=== PATIENT | female | born 1945 | race Caucasian/White ===

== ENCOUNTER → 2019-04-17 13:45 | Outpatient (REF) | payer MEDICARE, OTHER, SELFPAY ==
[2019-04-17 14:48] LABS: Absolute Lymphocyte Count 1.81 X10^3/uL (0.83-4.51); Absolute Neutrophil Count 5.1 X10^3/uL (2.0-7.7); Basophil# 0.04 X10^3/uL; Basophil% 0.5 % (0-1); Eosinophil# 0.46 X10^3/uL; Eosinophils% 5.9 % (0-5); Hematocrit 41.6 % (37-47); Hemoglobin 13.3 g/dL (12.0-15.0); Lymphocyte # 1.81 X10^3/ul (4.0); Lymphocyte % 23.1 % (19-41); Mean Corpuscular Hgb 29.5 pg (27.0-32.0); Mean Corpuscular Volume 92.2 fL (81-99); Mean Platelet Vol. 10.1 fl (6.2-12.0); Monocyte# 0.41 X10^3/uL; Monocyte% 5.2 % (0-10); NRBC Flagged by Analyzer 0 % (0-5); Neutrophil # 5.07 X10^3/uL (2.7-7.7); Neutrophil % 64.9 % (47-70); Platelet Count 383 K/mm3 (150-450); RBC Distribution Width CV 12.7 % (11.6-14.6); RBC Distribution Width SD 43.1 fl (35.1-43.9); Red Blood Count 4.51 M/mm3 (4.2-5.4); White Blood Count 7.8 K/mm3 (4.4-11.0)
[2019-04-17 15:01] LABS: T3 Total - Triiodothyronine 1.11 ng/mL (0.6-1.81)
[2019-04-17 15:02] LABS: Anion Gap 4 (5-15); BUN 18 mg/dL (7-18); BUN/Creat Ratio 42.9 RATIO (10-20); Chloride 109 mmol/L (98-107); Creatinine, Serum 0.42 mg/dL (0.55-1.02); EST Glomerular Filtration Rate 158 mL/min (>60); Est Glom Filt Rate - Afr Amer 191 mL/min (>60); Glucose 140 mg/dL (74-106); Magnesium 2.3 mg/dL (1.6-2.6); Potassium 3.9 mmol/L (3.5-5.1); Sodium Level 142 mmol/L (136-145); T4 Total, Thyroxin 9.7 ug/dL (4.8-13.9); Thyroid Stim Hormone (TSH) 0.47 uIU/mL (0.358-3.74)
== END ==
LOC: OLS.ACH 13:45
PROVIDERS: Visit Provider Family Medicine
DX: R00.0 Tachycardia, unspecified (principal)
CPT/HCPCS: 36415; 80048; 83735; 84436; 84443; 84480; 85025

== ENCOUNTER → 2020-03-19 07:20 | Outpatient (REF) | payer MEDICARE, OTHER, SELFPAY ==
[2020-03-19 08:37] LABS: Hematocrit 40.7 % (37-47); Hemoglobin 12.4 g/dL (12.0-15.0); Mean Corp Hgb Conc 30.5 g/dL (32-36); Mean Corpuscular Volume 95.3 fL (81-99); Mean Platelet Vol. 10.2 fl (6.2-12.0); Platelet Count 321 K/mm3 (150-450); RBC Distribution Width CV 13.5 % (11.6-14.6); RBC Distribution Width SD 47.4 fl (35.1-43.9); Red Blood Count 4.27 M/mm3 (4.2-5.4); White Blood Count 5.6 K/mm3 (4.4-11.0)
[2020-03-19 09:02] LABS: AST(SGOT) 16 U/L (15-37); Alanine Aminotransfer ALT/SGPT 27 U/L (13-56); Albumin, Serum 3.3 g/dL (3.2-5.0); Alkaline Phosphatase 82 U/L (45-117); Anion Gap 4 (5-15); BUN 17 mg/dL (7-18); Chloride 104 mmol/L (98-107); EST Glomerular Filtration Rate 234 mL/min (>60); Est Glom Filt Rate - Afr Amer 283 mL/min (>60); Globulin 3.2 g/dL (2.2-4.2); Glucose 89 mg/dL (74-106); Potassium 3.8 mmol/L (3.5-5.1); Protein, Total 6.5 g/dL (6.4-8.2); Sodium Level 138 mmol/L (136-145); Thyroid Stim Hormone (TSH) 0.88 uIU/mL (0.358-3.74)
== END ==
LOC: OLS.ACH 07:20
PROVIDERS: Referring Provider Family Medicine; Visit Provider Family Medicine
DX: G35 Multiple sclerosis (principal); E04.9 Nontoxic goiter, unspecified
CPT/HCPCS: 36415; 80053; 84443; 85027

== ENCOUNTER → 2020-04-30 | Outpatient (REF) | payer MEDICARE, OTHER, SELFPAY | END | disposition home or self-care (01) | LOC: LABSPEC 05:00 | PROVIDERS: Referring Provider Family Medicine; Visit Provider Family Medicine | DX: Z11.59 Encounter for screening for other viral diseases (principal) | CPT/HCPCS: 87635; U0003 ==

== ENCOUNTER → 2020-05-07 05:00 | Outpatient (REF) | payer MEDICARE, OTHER, SELFPAY | LOC: OLS.ACH 05:00 | PROVIDERS: Referring Provider Family Medicine; Visit Provider Family Medicine | DX: Z11.59 Encounter for screening for other viral diseases (principal) | CPT/HCPCS: 87635; U0003 ==

== ENCOUNTER → 2020-05-12 10:00 | Outpatient (REF) | payer MEDICARE, OTHER, SELFPAY | LOC: OLS.ACH 10:00 | PROVIDERS: Visit Provider Family Medicine | DX: Z11.59 Encounter for screening for other viral diseases (principal) | CPT/HCPCS: 87635; U0003 ==

== ENCOUNTER → 2020-05-16 14:33 | Outpatient (REF) | payer MEDICARE, OTHER, SELFPAY | LOC: OLS.ACH 14:33 | PROVIDERS: Referring Provider Family Medicine; Visit Provider Family Medicine | DX: Z03.818 Encounter for observation for suspected exposure to other biological agents ruled out (principal) | CPT/HCPCS: 87635; U0003 ==

== ENCOUNTER → 2020-05-19 08:00 | Outpatient (REF) | payer MEDICARE, OTHER, SELFPAY | LOC: OLS.ACH 08:00 | PROVIDERS: Referring Provider Family Medicine; Visit Provider Family Medicine | DX: Z03.818 Encounter for observation for suspected exposure to other biological agents ruled out (principal) | CPT/HCPCS: 87635; U0003 ==

== ENCOUNTER → 2020-05-23 12:42 | Outpatient (REF) | payer MEDICARE, OTHER, SELFPAY | LOC: OLS.ACH 12:42 | PROVIDERS: Referring Provider Family Medicine; Visit Provider Family Medicine | DX: Z03.818 Encounter for observation for suspected exposure to other biological agents ruled out (principal) | CPT/HCPCS: 87635; U0003 ==

== ENCOUNTER → 2020-05-26 15:52 | Outpatient (REF) | payer MEDICARE, OTHER, SELFPAY | LOC: OLS.ACH 15:52 | PROVIDERS: Visit Provider Family Medicine | DX: Z03.818 Encounter for observation for suspected exposure to other biological agents ruled out (principal) | CPT/HCPCS: 87635; U0003 ==

== ENCOUNTER → 2020-05-30 09:28 | Outpatient (REF) | payer MEDICARE, OTHER, SELFPAY | LOC: OLS.ACH 09:28 | PROVIDERS: Referring Provider Family Medicine; Visit Provider Family Medicine | DX: Z03.818 Encounter for observation for suspected exposure to other biological agents ruled out (principal) | CPT/HCPCS: 87635; U0003 ==

== ENCOUNTER → 2020-06-03 09:24 | Outpatient (REF) | payer MEDICARE, OTHER, SELFPAY | LOC: OLS.ACH 09:24 | PROVIDERS: Referring Provider Family Medicine; Visit Provider Family Medicine | DX: Z03.818 Encounter for observation for suspected exposure to other biological agents ruled out (principal) | CPT/HCPCS: 87635; U0003 ==

== ENCOUNTER → 2020-06-06 11:00 | Outpatient (REF) | payer MEDICARE, OTHER, SELFPAY | LOC: OLS.ACH 11:00 | PROVIDERS: Visit Provider Family Medicine | DX: Z03.818 Encounter for observation for suspected exposure to other biological agents ruled out (principal) | CPT/HCPCS: 87635; U0003 ==

== ENCOUNTER → 2020-06-10 09:04 | Outpatient (REF) | payer MEDICARE, OTHER, SELFPAY | LOC: OLS.ACH 09:04 | PROVIDERS: Visit Provider Family Medicine | DX: Z03.818 Encounter for observation for suspected exposure to other biological agents ruled out (principal) | CPT/HCPCS: 87635; U0003 ==

== ENCOUNTER → 2020-06-17 07:52 | Outpatient (REF) | payer MEDICARE, OTHER, SELFPAY | LOC: OLS.ACH 07:52 | PROVIDERS: Referring Provider Family Medicine; Visit Provider Family Medicine | DX: Z03.818 Encounter for observation for suspected exposure to other biological agents ruled out (principal) | CPT/HCPCS: 87635; U0003 ==

== ENCOUNTER → 2020-06-24 12:50 | Outpatient (REF) | payer MEDICARE, OTHER, SELFPAY | LOC: OLS.ACH 12:50 | PROVIDERS: Visit Provider Family Medicine | DX: Z03.818 Encounter for observation for suspected exposure to other biological agents ruled out (principal) | CPT/HCPCS: 87635; U0003 ==

== ENCOUNTER → 2020-07-01 12:07 | Outpatient (REF) | payer MEDICARE, OTHER, SELFPAY | LOC: OLS.ACH 12:07 | PROVIDERS: PCP Family Medicine; Referring Provider Family Medicine; Visit Provider Family Medicine | DX: Z03.818 Encounter for observation for suspected exposure to other biological agents ruled out (principal) | CPT/HCPCS: 87635; U0003 ==

== ENCOUNTER → 2020-07-15 10:22 | Outpatient (REF) | payer MEDICARE, OTHER, SELFPAY | LOC: OLS.ACH 10:22 | PROVIDERS: PCP Family Medicine; Referring Provider Family Medicine; Visit Provider Family Medicine | DX: Z03.818 Encounter for observation for suspected exposure to other biological agents ruled out (principal) | CPT/HCPCS: 87635; U0003 ==

== ENCOUNTER → 2020-07-29 08:17 | Outpatient (REF) | payer MEDICARE, OTHER, SELFPAY | LOC: OLS.ACH 08:17 | PROVIDERS: PCP Family Medicine; Referring Provider Family Medicine; Visit Provider Family Medicine | DX: Z03.818 Encounter for observation for suspected exposure to other biological agents ruled out (principal) | CPT/HCPCS: 87635; U0003 ==

== ENCOUNTER → 2020-08-12 09:19 | Outpatient (REF) | payer MEDICARE, OTHER, SELFPAY | LOC: OLS.ACH 09:19 | PROVIDERS: PCP Family Medicine; Referring Provider Family Medicine; Visit Provider Family Medicine | DX: Z03.818 Encounter for observation for suspected exposure to other biological agents ruled out (principal) | CPT/HCPCS: 87635; U0003 ==

== ENCOUNTER → 2020-08-26 17:09 | Outpatient (REF) | payer MEDICARE, OTHER, SELFPAY | LOC: OLS.ACH 17:09 | PROVIDERS: PCP Family Medicine; Referring Provider Family Medicine; Visit Provider Family Medicine | DX: Z03.818 Encounter for observation for suspected exposure to other biological agents ruled out (principal) | CPT/HCPCS: 87635; U0005; U0003 ==

== ENCOUNTER → 2020-09-09 10:05 | Outpatient (REF) | payer MEDICARE, OTHER, SELFPAY | LOC: OLS.ACH 10:05 | PROVIDERS: PCP Family Medicine; Referring Provider Family Medicine; Visit Provider Family Medicine | DX: Z03.818 Encounter for observation for suspected exposure to other biological agents ruled out (principal) | CPT/HCPCS: 87635; U0003 ==

== ENCOUNTER → 2020-10-07 12:28 | Outpatient (REF) | payer MEDICARE, OTHER, SELFPAY | LOC: OLS.ACH 12:28 | PROVIDERS: PCP Family Medicine; Referring Provider Family Medicine; Visit Provider Family Medicine | DX: Z03.818 Encounter for observation for suspected exposure to other biological agents ruled out (principal) | CPT/HCPCS: 87635; U0005; U0003 ==

== ENCOUNTER → 2020-10-21 10:00 | Outpatient (REF) | payer MEDICARE, OTHER, SELFPAY | LOC: OLS.ACH 10:00 | PROVIDERS: PCP Family Medicine; Visit Provider Family Medicine | DX: Z03.818 Encounter for observation for suspected exposure to other biological agents ruled out (principal) | CPT/HCPCS: 87635; U0005; U0003 ==

== ENCOUNTER → 2020-12-17 05:00 | Outpatient (REF) | payer MEDICARE, OTHER, SELFPAY ==
[2020-12-17 08:35] LABS: Absolute Lymphocyte Count 2.86 X10^3/uL (0.83-4.51); Absolute Neutrophil Count 2.8 X10^3/uL (2.0-7.7); Basophil# 0.04 X10^3/uL; Basophil% 0.6 % (0-1); Eosinophil# 0.22 X10^3/uL; Eosinophils% 3.4 % (0-5); Hematocrit 38.4 % (37-47); Hemoglobin 12.1 g/dL (12.0-15.0); Lymphocyte # 2.86 X10^3/ul (0.83-4.51); Lymphocyte % 44.3 % (19-41); Mean Corp Hgb Conc 31.5 g/dL (32-36); Mean Corpuscular Hgb 30.3 pg (27.0-32.0); Mean Platelet Vol. 10.7 fl (6.2-12.0); Monocyte# 0.53 X10^3/uL; Monocyte% 8.2 % (0-10); NRBC Flagged by Analyzer 0 % (0-5); Neutrophil % 43.3 % (47-70); Platelet Count 345 K/mm3 (150-450); RBC Distribution Width CV 12.5 % (11.6-14.6); RBC Distribution Width SD 44.5 fl (35.1-43.9); White Blood Count 6.5 K/mm3 (4.4-11.0)
[2020-12-17 09:11] LABS: ALB/GLOB Ratio 1.1 RATIO (0.9-2.4); AST(SGOT) 12 U/L (15-37); Alanine Aminotransfer ALT/SGPT 21 U/L (13-56); Albumin, Serum 3.3 g/dL (3.2-5.0); Alkaline Phosphatase 90 U/L (45-117); Anion Gap 6 (5-15); BUN 24 mg/dL (7-18); BUN/Creat Ratio 73.2 RATIO (10-20); Calcium,Total 9.1 mg/dL (8.5-10.1); Chloride 107 mmol/L (98-107); Creatinine, Serum 0.33 mg/dL (0.55-1.02); EST Glomerular Filtration Rate 209 mL/min (>60); Est Glom Filt Rate - Afr Amer 253 mL/min (>60); Globulin 3.1 g/dL (2.2-4.2); Glucose 92 mg/dL (74-106); Potassium 3.8 mmol/L (3.5-5.1); Protein, Total 6.4 g/dL (6.4-8.2); Sodium Level 141 mmol/L (136-145); Thyroid Stim Hormone (TSH) 0.99 uIU/mL (0.358-3.74)
== END ==
LOC: OLS.ACH 05:00
PROVIDERS: PCP Family Medicine; Referring Provider Family Medicine; Visit Provider Family Medicine
DX: R42 Dizziness and giddiness (principal); E03.9 Hypothyroidism, unspecified
CPT/HCPCS: 36415; 80053; 84443; 85025

== ENCOUNTER → 2021-06-17 05:00 | Outpatient (REF) | payer MEDICARE, OTHER, SELFPAY ==
[2021-06-17 09:01] LABS: Absolute Neutrophil Count 1.9 X10^3/uL (2.0-7.7); Basophil# 0.03 X10^3/uL; Basophil% 0.6 % (0-1); Eosinophil# 0.24 X10^3/uL; Eosinophils% 4.8 % (0-5); Hematocrit 37.7 % (37-47); Hemoglobin 11.9 g/dL (12.0-15.0); Lymphocyte % 44.4 % (19-41); Mean Corp Hgb Conc 31.6 g/dL (32-36); Mean Corpuscular Hgb 29.8 pg (27.0-32.0); Mean Corpuscular Volume 94.5 fL (81-99); Mean Platelet Vol. 10.5 fl (6.2-12.0); Monocyte# 0.57 X10^3/uL; Monocyte% 11.5 % (0-10); NRBC Flagged by Analyzer 0 % (0-5); Neutrophil # 1.91 X10^3/uL (2.7-7.7); Neutrophil % 38.5 % (47-70); Platelet Count 314 K/mm3 (150-450); RBC Distribution Width CV 12.3 % (11.6-14.6); RBC Distribution Width SD 43.1 fl (35.1-43.9); Red Blood Count 3.99 M/mm3 (4.2-5.4)
[2021-06-17 09:11] LABS: T3 Total - Triiodothyronine 0.81 ng/mL (0.6-1.81)
[2021-06-17 09:24] LABS: ALB/GLOB Ratio 0.8 RATIO (0.9-2.4); AST(SGOT) 28 U/L (15-37); Alanine Aminotransfer ALT/SGPT 40 U/L (13-56); Albumin, Serum 2.7 g/dL (3.2-5.0); Alkaline Phosphatase 100 U/L (45-117); Anion Gap 3 (5-15); BUN 20 mg/dL (7-18); BUN/Creat Ratio 59.9 RATIO (10-20); Calcium,Total 8.9 mg/dL (8.5-10.1); Chloride 109 mmol/L (98-107); Creatinine, Serum 0.33 mg/dL (0.55-1.02); EST Glomerular Filtration Rate 204 mL/min (>60); Est Glom Filt Rate - Afr Amer 247 mL/min (>60); Globulin 3.4 g/dL (2.2-4.2); Glucose 91 mg/dL (74-106); Protein, Total 6.1 g/dL (6.4-8.2); Sodium Level 141 mmol/L (136-145); T4 Total, Thyroxin 7.7 ug/dL (4.8-13.9); Thyroid Stim Hormone (TSH) 0.51 uIU/mL (0.358-3.74)
== END ==
LOC: OLS.ACH 05:00
PROVIDERS: PCP Family Medicine; Visit Provider Family Medicine
DX: E04.9 Nontoxic goiter, unspecified (principal)
CPT/HCPCS: 36415; 80053; 84436; 84443; 84480; 85025

== ENCOUNTER → 2021-07-01 09:15 | Outpatient (REF) | payer MEDICARE, OTHER, SELFPAY ==
[2021-07-01 10:57] LABS: Anion Gap 6 (5-15); BUN 20 mg/dL (7-18); BUN/Creat Ratio 43.3 RATIO (10-20); Calcium,Total 9.1 mg/dL (8.5-10.1); Chloride 109 mmol/L (98-107); Creatinine, Serum 0.46 mg/dL (0.55-1.02); EST Glomerular Filtration Rate 140 mL/min (>60); Est Glom Filt Rate - Afr Amer 170 mL/min (>60); Glucose 139 mg/dL (74-106); Potassium 3.8 mmol/L (3.5-5.1); Sodium Level 142 mmol/L (136-145)
== END ==
LOC: OLS.ACH 09:15
PROVIDERS: PCP Family Medicine; Visit Provider Family Medicine
DX: K59.00 Constipation, unspecified (principal)
CPT/HCPCS: 36415; 80048

== ENCOUNTER → 2022-02-22 11:00 | Outpatient (REF) | payer MEDICARE, OTHER, SELFPAY ==
[2022-02-22 11:49] LABS: EST Glomerular Filtration Rate 166 mL/min (>60); Est Glom Filt Rate - Afr Amer 201 mL/min (>60)
== END ==
LOC: OLS.ACH 11:00
PROVIDERS: PCP Family Medicine; Visit Provider Family Medicine
DX: G35 Multiple sclerosis (principal); K21.9 Gastro-esophageal reflux disease without esophagitis
CPT/HCPCS: 36415; 82565

== ENCOUNTER → 2022-05-05 | Outpatient (REF) | payer MEDICARE, OTHER, SELFPAY ==
[2022-05-05 13:12] LABS: Mucous, Urine 0 SEEN /hpf (<or=2+)
[2022-05-05 13:49] LABS: Absolute Lymphocyte Count 1.34 X10^3/uL (0.83-4.51); Absolute Neutrophil Count 11.6 X10^3/uL (2.0-7.7); Basophil# 0.03 X10^3/uL; Basophil% 0.2 % (0-1); Eosinophil# 0.04 X10^3/uL; Eosinophils% 0.3 % (0-5); Hematocrit 37.5 % (37-47); Lymphocyte # 1.34 X10^3/ul (0.83-4.51); Lymphocyte % 9.7 % (19-41); Mean Corpuscular Volume 96.9 fL (81-99); Monocyte# 0.85 X10^3/uL; Monocyte% 6.1 % (0-10); NRBC Flagged by Analyzer 0 % (0-5); Neutrophil # 11.55 X10^3/uL (2.7-7.7); Neutrophil % 83.3 % (47-70); Platelet Count 211 K/mm3 (150-450); RBC Distribution Width CV 13.2 % (11.6-14.6); RBC Distribution Width SD 47.3 fl (35.1-43.9); Red Blood Count 3.87 M/mm3 (4.2-5.4); White Blood Count 13.9 K/mm3 (4.4-11.0)
[2022-05-05 13:51] LABS: Color, Urine Yellow (Yellow); Glucose, Dipstick Normal (Normal); Ketone-Dipstick Negative (Negative); Leukocyte Esterase-Dipstick 500 /ul (Negative); Nitrite-Dipstick Positive (Negative); Occult Blood-Urine 150 /ul (Negative); Protein-Dipstick 30 mg/dl (Negative); Specific Gravity, Urine 1.005 (1.002-1.030); Urine Bilirubin Dipstick Negative (Negative); Urine Clarity Sl. Cloudy (Clear); Urine Urobilinogen Normal (Normal)
[2022-05-05 14:00] LABS: ALB/GLOB Ratio 0.8 RATIO (0.9-2.4); AST(SGOT) 32 U/L (15-37); Alanine Aminotransfer ALT/SGPT 96 U/L (13-56); Albumin, Serum 2.9 g/dL (3.2-5.0); Alkaline Phosphatase 108 U/L (45-117); Anion Gap 9 (5-15); BUN 15 mg/dL (7-18); BUN/Creat Ratio 43.9 RATIO (10-20); Calcium,Total 8.8 mg/dL (8.5-10.1); Chloride 106 mmol/L (98-107); Creatinine, Serum 0.34 mg/dL (0.55-1.02); EST Glomerular Filtration Rate 198 mL/min (>60); Est Glom Filt Rate - Afr Amer 240 mL/min (>60); Globulin 3.6 g/dL (2.2-4.2); Glucose 118 mg/dL (74-106); Lipase 47 U/L (73-393); Potassium 3.8 mmol/L (3.5-5.1); Protein, Total 6.5 g/dL (6.4-8.2); Sodium Level 140 mmol/L (136-145)
[2022-05-05 14:02] LABS: Bacteria 3+ /hpf (None Seen); Red Blood Cells-Urine 10-25 SEEN /hpf (0-5); Squamous Epithelial Cells - UA 0-5 SEEN /hpf (5-10); White Blood Cells 25-50 SEEN /hpf (0-5)
== END ==
LOC: OLS.ACH 12:40
PROVIDERS: PCP Family Medicine; Referring Provider Family Medicine; Visit Provider Family Medicine
DX: R10.9 Unspecified abdominal pain (principal)
CPT/HCPCS: 36415; 80053; 81001; 83690; 85025; 87086; 87088; 87186

== ENCOUNTER → 2022-11-02 | Outpatient (REF) | payer MEDICARE, OTHER, SELFPAY ==
[2022-11-02 09:23] LABS: Vitamin D,25 Hydroxy 93.1 ng/mL
== END ==
LOC: OLS.ACH 05:00
PROVIDERS: PCP Family Medicine; Visit Provider Internal Medicine
DX: E55.9 Vitamin D deficiency, unspecified (principal)
CPT/HCPCS: 36415; 82306

== ENCOUNTER → 2023-01-28 | Outpatient (REF) | payer MEDICARE, OTHER, SELFPAY ==
[2023-01-28 08:12] LABS: Hematocrit 38.5 % (37-47); Hemoglobin 11.8 g/dL (12.0-15.0); Mean Corp Hgb Conc 30.6 g/dL (32-36); Mean Corpuscular Hgb 28.7 pg (27.0-32.0); Mean Corpuscular Volume 93.7 fL (81-99); Mean Platelet Vol. 10.4 fl (6.2-12.0); Platelet Count 371 K/mm3 (150-450); RBC Distribution Width CV 13.9 % (11.6-14.6); RBC Distribution Width SD 47.8 fl (35.1-43.9); Red Blood Count 4.11 M/mm3 (4.2-5.4); White Blood Count 8.9 K/mm3 (4.4-11.0)
[2023-01-28 08:26] LABS: AST(SGOT) 23 U/L (15-37); Alanine Aminotransfer ALT/SGPT 35 U/L (13-56); Albumin, Serum 3.3 g/dL (3.2-5.0); Alkaline Phosphatase 87 U/L (45-117); Anion Gap 8 (5-15); BUN 21 mg/dL (7-18); BUN/Creat Ratio 64.8 RATIO (10-20); Chloride 107 mmol/L (98-107); Creatinine, Serum 0.32 mg/dL (0.55-1.02); EST Glomerular Filtration Rate 210 mL/min (>60); Est Glom Filt Rate - Afr Amer 255 mL/min (>60); Globulin 3.3 g/dL (2.2-4.2); Glucose 101 mg/dL (74-106); Protein, Total 6.6 g/dL (6.4-8.2); Sodium Level 144 mmol/L (136-145)
== END ==
LOC: OLS.ACH 05:00
PROVIDERS: PCP Family Medicine; Visit Provider Internal Medicine
DX: R11.2 Nausea with vomiting, unspecified (principal); Z79.899 Other long term (current) drug therapy
CPT/HCPCS: 36415; 80053; 85027

== ENCOUNTER → 2023-11-01 | Outpatient (REF) | payer MEDICARE, OTHER, SELFPAY ==
[2023-11-01 09:56] LABS: Vitamin D,25 Hydroxy 68.1 ng/mL
== END ==
LOC: OLS.ACH 05:00
PROVIDERS: PCP Family Medicine; Visit Provider Internal Medicine
DX: E55.9 Vitamin D deficiency, unspecified (principal)
CPT/HCPCS: 36415; 82306

== ENCOUNTER → 2023-11-16 | Outpatient (REF) | payer MEDICARE, OTHER, SELFPAY ==
[2023-11-16 08:21] LABS: Hemoglobin 12.1 g/dL (12.0-15.0); Mean Corp Hgb Conc 31.8 g/dL (32-36); Mean Corpuscular Hgb 29.8 pg (27.0-32.0); Mean Corpuscular Volume 93.6 fL (81-99); Mean Platelet Vol. 10.4 fl (6.2-12.0); Platelet Count 366 K/mm3 (150-450); RBC Distribution Width CV 13.4 % (11.6-14.6); Red Blood Count 4.06 M/mm3 (4.2-5.4); White Blood Count 6.3 K/mm3 (4.4-11.0)
[2023-11-16 08:29] LABS: Vitamin D,25 Hydroxy 54.7 ng/mL
[2023-11-16 08:31] LABS: AST(SGOT) 14 U/L (15-37); Alanine Aminotransfer ALT/SGPT 19 U/L (13-56); Albumin, Serum 3.2 g/dL (3.2-5.0); Alkaline Phosphatase 71 U/L (45-117); Anion Gap 3 (5-15); BUN 28 mg/dL (7-18); BUN/Creat Ratio 65.3 RATIO (10-20); Chloride 111 mmol/L (98-107); Creatinine, Serum 0.43 mg/dL (0.55-1.02); EST Glomerular Filtration Rate 152 mL/min (>60); Est Glom Filt Rate - Afr Amer 184 mL/min (>60); Globulin 3.2 g/dL (2.2-4.2); Glucose 104 mg/dL (74-106); Potassium 4.1 mmol/L (3.5-5.1); Protein, Total 6.4 g/dL (6.4-8.2); Sodium Level 141 mmol/L (136-145)
== END ==
LOC: OLS.ACH 05:00
PROVIDERS: PCP Family Medicine; Visit Provider Internal Medicine
DX: G35 Multiple sclerosis (principal); E55.9 Vitamin D deficiency, unspecified; I73.9 Peripheral vascular disease, unspecified
CPT/HCPCS: 36415; 80053; 82306; 85027

== ENCOUNTER 2023-12-31 18:21 | Emergency (ER) | payer MEDICARE, OTHER, SELFPAY ==
[2023-12-31 18:22] VITALS: BP 141/70; PULSE 107; RESP 16; TEMP 35.9; O2SAT 94
--- NOTE | 2023-12-31 19:00 | RAD_ITS ---
STUDY: X-RAY - RIGHT HUMERUS REASON FOR EXAM: Female, 78 years old. injury TECHNIQUE: 2 view(s) of the humerus. COMPARISON: None. FINDINGS: Irregularity humeral neck may represent an impacted fracture. There is no demonstrated fracture or osseous destructive process. There is no demonstrated soft tissue abnormality. RAD/Humerus min 2 Views IMPRESSION: Possible impacted fracture of the humeral neck. CT would be useful. Electronically Signed: Moises Sweet MD at 19:41 EDT ,
--- NOTE | 2023-12-31 19:20 | EX.ED.UPPERE ---
HPI History of Present Illness Chief Complaint: Upper Extremity Injury Informant: patient, EMS and SNF Narrative Narrative: 78-year-old female presenting to the emergency room with right arm pain. Patient states that her aide was helping her get onto her mobility scooter she felt a pop in the right shoulder. It is reported that she had a chest x-ray performed which showed a fracture of the humerus. There was no report from the radiologist or images sent for us to look at. Patient reports tenderness to palpation over the proximal humerus. Patient has a history of multiple sclerosis because of the paraplegia is in longterm. [facility] Medical History Osteoporosis Peripheral vascular disease Atherosclerotic heart disease Paraplegia Dysphagia GERD (gastroesophageal reflux disease) Home Medications ?Medication ?Instructions ?Recorded ?Last Taken ?Type acetaminophen 500 mg tablet 1,000 mg PO BID 12/31/23 Unknown History alendronate 70 mg tablet 70 mg PO QWEEK 12/31/23 Unknown History aspirin 81 mg chewable tablet 1 tab PO DAILY 12/31/23 Unknown History carboxymethylcellulose sodium 0.5 2 drp EACH EYE TID 12/31/23 Unknown History % eye drops (Lubricant Eye Drops) cetirizine 10 mg tablet 10 mg PO DAILY 12/31/23 Unknown History cranberry conc-vit 30 ml PO DAILY 12/31/23 Unknown History X-dszicmw-IXL-bromelain 3,875 mg/30 mL oral liquid (UTI-Stat) ergocalciferol (vitamin D2) 1,250 50,000 unit PO Q45D 12/31/23 Unknown History mcg (50,000 unit) capsule (Vitamin D2) fluorometholone 0.1 % eye 1 drp ophthalmic (eye) DAILY 12/31/23 Unknown History drops,suspension ipratropium bromide 42 mcg (0.06 1 spray intranasal BID 12/31/23 Unknown History %) nasal spray omeprazole 20 mg capsule,delayed 20 mg PO DAILY 12/31/23 Unknown History release polyethylene glycol 3350 17 17 g PO MOWEFR 12/31/23 Unknown History gram/dose oral powder (ClearLax) sennosides 8.6 mg-docusate sodium 2 tab-cap PO DAILY 12/31/23 Unknown History 50 mg tablet (2-in-1 Laxative) sertraline 20 mg/mL oral 100 mg PO QHS 12/31/23 Unknown History concentrate sulfamethoxazole 200 10 ml PO MOWEFR 12/31/23 Unknown History mg-trimethoprim 40 mg/5 mL oral suspension tramadol 50 mg tablet 25 mg PO BID 12/31/23 Unknown History Allergy/AdvReac Type Severity Reaction Status Date / Time No Known Allergies Allergy Verified 12/31/23 18:26 Social History Smoking Status: Former smoker ROS ROS ED Constitutional Constitutional ED: Denies chills or weight loss Eyes Eyes: Denies change in vision or diplopia ENT ENT ED: Denies ear pain, rhinorrhea or sore throat Cardiovascular Cardiovascular: Denies chest pain, orthopnea, palpitations or racing heartbeat Respiratory/Chest Respiratory/Chest: Denies cough, dyspnea or orthopnea Gastrointestinal Gastrointestinal: Denies abdominal pain, diarrhea, nausea or vomiting Genitourinary Genitourinary ED: Denies dysuria, hematuria or urinary frequency Musculoskeletal Musculoskeletal: Reports other Details: Right shoulder pain ; Denies arthralgias or myalgias Integumentary Denies abscess or rash Neurologic Neurologic: Denies headache(s) or weakness Psychiatric Psychiatric: Denies anxiety, depression, suicidal ideation or suicidal thoughts Endocrine Endocrinology: Denies polydipsia, polyphagia or polyuria Allergic/Immunologic Allergic/Immunologic ED: Denies mouth swelling, tongue swelling or urticaria EXAM Physical Exam Const Vital Signs: 12/31/23 18:22 Temperature 96.6 F L Temperature Source Temporal Pulse Rate 107 H Respiratory Rate 16 Blood Pressure 141/70 H Blood Pressure Mean 93 Pulse Ox 94 Oxygen Delivery Method Room Air Positive well nourished and well developed General Appearance ED: well developed HEENT Reports normocephalic, head/scalp atraumatic and moist mucous membranes Eyes PERRL and EOMs intact bilaterally Neck no lymphadenopathy, supple and no JVD Resp normal respiratory effort and clear to auscultation bilaterally Cardio regular rate, regular rhythm and no murmurs GI normal to inspection, nondistended, normoactive bowel sounds and non-tender Palpation: soft Back/Spine no CVA tenderness and normal ROM Extremity Extremity Narrative: Patient appears to have some chronic spasticity/contractures. She has tenderness laterally over the proximal humerus. There is no palpable dislocation. She does not complain of tenderness at the elbow hand or wrist joint. She appears vascularly intact distal to the shoulder. General Extremety ED: Negative for edema General Extremity: Negative for edema Neuro oriented x3 and CN's II-XII intact bilaterally Sensorium / Orientation: alert Psych mental status grossly normal Mood & Affect: Negative for depressed or tearful Skin no rashes or lesions noted and no wounds MDM MDM MDM Narrative Medical decision making narrative: My independent interpretation of the plain films of the right shoulder is a fracture of the proximal humerus humerus. She is placed in a sling. She will have pain medication. She can follow-up with orthopedics as outpatient. History & Record Review Discussion w/independent historian: Patient Discharge Plan Triage Chief Complaint: Upper Extremity Injury ED Provider: Delvin Rodrigues Dx/Rx/DC Orders Clinical Impression: Fracture of proximal end of right humerus, Multiple sclerosis Instructions: ED Fracture, Shoulder Prescriptions: No Action acetaminophen 500 mg tablet 1,000 mg PO BID aspirin 81 mg tablet,chewable 1 tab PO DAILY fluorometholone 0.1 % drops,suspension 1 drp ophthalmic (eye) DAILY alendronate 70 mg tablet 70 mg PO QWEEK polyethylene glycol 3350 [ClearLax] 17 gram/dose powder 17 g PO MOWEFR ipratropium bromide 42 mcg (0.06 %) spray,non-aerosol 1 spray INTRANASAL BID omeprazole 20 mg capsule,delayed release(DR/EC) 20 mg PO DAILY carboxymethylcellulose sodium [Lubricant Eye Drops] 0.5 % drops 2 drp EACH EYE TID sennosides-docusate sodium [2-in-1 Laxative] 8.6-50 mg tablet 2 tab-cap PO DAILY sertraline 20 mg/mL concentrate 100 mg PO QHS sulfamethoxazole-trimethoprim 200-40 mg/5 mL suspension 10 ml PO MOWEFR tramadol 50 mg tablet 25 mg PO BID UTI-Stat 3,875 mg/30 mL liquid 30 ml PO DAILY ergocalciferol (vitamin D2) [Vitamin D2] 1,250 mcg (50,000 unit) capsule 50,000 unit PO Q45D cetirizine 10 mg tablet 10 mg PO DAILY Primary Care Provider: Sascha Michele Referrals: Eren Mayen MD [Med Staff - Active Staff] - As soon as possible Sascha Michele [Primary Care Provider] - Print Language: Belarusian Disposition Disposition: Home, Self Care
--- NOTE | 2023-12-31 20:07 | ED.RN ---
report called to [facility], spoke to Parvin KATZ, questions/concerns amswered
[2023-12-31 20:20] VITALS: BP 128/60; PULSE 95; RESP 20; TEMP 36; O2SAT 95
== END 2023-12-31 21:40 | disposition home or self-care (01) ==
PROVIDERS: Emergency Provider Emergency Medicine; PCP Family Medicine; Visit Provider Emergency Medicine
DX: S42.201A Unspecified fracture of upper end of right humerus, initial encounter for closed fracture (principal); G35 Multiple sclerosis; Z87.891 Personal history of nicotine dependence; X58.XXXA Exposure to other specified factors, initial encounter; Y92.129 Unspecified place in nursing home as the place of occurrence of the external cause; I25.10 Atherosclerotic heart disease of native coronary artery without angina pectoris; M81.0 Age-related osteoporosis without current pathological fracture; K21.9 Gastro-esophageal reflux disease without esophagitis; Z79.899 Other long term (current) drug therapy
CPT/HCPCS: 73060; 99283

== ENCOUNTER → 2024-10-30 | Outpatient (REF) | payer MEDICARE, OTHER, SELFPAY ==
[2024-10-30 08:22] LABS: Vitamin D,25 Hydroxy 35.1 ng/mL (30-100)
== END ==
LOC: OLS.ACH 04:00
PROVIDERS: PCP Family Medicine; Referring Provider Internal Medicine; Visit Provider Internal Medicine
DX: E55.9 Vitamin D deficiency, unspecified (principal)
CPT/HCPCS: 36415; 82306

== ENCOUNTER → 2024-11-19 | Outpatient (REF) | payer MEDICARE, OTHER, SELFPAY ==
[2024-11-19 10:08] LABS: Hematocrit 37.8 % (37-47); Hemoglobin 11.8 g/dL (12.0-15.0); Mean Corp Hgb Conc 31.2 g/dL (32-36); Mean Corpuscular Hgb 29.7 pg (27.0-32.0); Mean Corpuscular Volume 95.2 fL (81-99); Mean Platelet Vol. 10.5 fl (6.2-12.0); Platelet Count 375 K/mm3 (150-450); RBC Distribution Width SD 49.1 fl (35.1-43.9); Red Blood Count 3.97 M/mm3 (4.2-5.4); White Blood Count 6.8 K/mm3 (4.4-11.0)
[2024-11-19 10:09] LABS: Anion Gap 10 (5-15); BUN 22 mg/dL (4-19); Calcium,Total 9.3 mg/dL (7.6-11.0); Carbon Dioxide 24.4 mmol/L (21.0-32.0); Chloride 108 mmol/L (98-108); EST Glomerular Filtration Rate 110 (>60); Glucose 82 mg/dL (70-99); Potassium 4.1 mmol/L (3.3-5.1); Sodium Level 142 mmol/L (133-145)
== END ==
LOC: OLS.ACH 05:00
PROVIDERS: PCP Family Medicine; Visit Provider Internal Medicine
DX: G35 Multiple sclerosis (principal); R13.12 Dysphagia, oropharyngeal phase
CPT/HCPCS: 36415; 80048; 85027

== ENCOUNTER 2024-12-22 08:13 | Emergency (ER) | payer MEDICARE, OTHER, SELFPAY ==
--- NOTE | 2024-12-22 08:18 | ED.VIS.LOWEX ---
HPI History of Present Illness Chief Complaint: Lower Extremity Injury Informant: patient and EMS Narrative Narrative: 79-year-old female started having pain in her right knee 2 days ago after being moved with a Cheryle lift. She is in the [facility], she is not ambulatory due to chronic disability from multiple sclerosis. She is wheelchair-bound and gets moved back and forth with a Cheryle lift. She does not walk or bear weight. She has had no falls or injuries. However she has osteoporosis and has had fractures from minor injuries in the past. There was an outpatient 2 view right knee x-ray done yesterday that was read as negative, however family requested she be sent to the ER for further evaluation. The patient denies having pain elsewhere other than her right knee, and she denies any other acute complaints. [facility] Medical History (Updated 12/22/24 @ 09:[address] Sabas Parada MD) Multiple sclerosis Osteoporosis Peripheral vascular disease Atherosclerotic heart disease Paraplegia Dysphagia GERD (gastroesophageal reflux disease) Home Medications ?Medication ?Instructions ?Recorded ?Last Taken ?Type acetaminophen 500 mg tablet 1,000 mg PO BID 12/31/23 12/21/24 History alendronate 70 mg tablet 70 mg PO QWEEK 12/31/23 12/21/24 History aspirin 81 mg chewable tablet 1 tab PO DAILY 12/31/23 12/21/24 History carboxymethylcellulose sodium 0.5 2 drp EACH EYE BID 12/31/23 12/21/24 History % eye drops (Lubricant Eye Drops) cetirizine 10 mg tablet 5 mg PO DAILY 12/31/23 12/21/24 History cranberry conc-vit 30 ml PO DAILY 12/31/23 12/21/24 History C-tedgqes-NKE-bromelain 3,875 mg/30 mL oral liquid (UTI-Stat) ergocalciferol (vitamin D2) 1,250 50,000 unit PO Q45D 12/31/23 Unknown History mcg (50,000 unit) capsule (Vitamin D2) fluorometholone 0.1 % eye 1 drp ophthalmic (eye) DAILY 12/31/23 12/21/24 History drops,suspension ipratropium bromide 42 mcg (0.06 1 spray intranasal BID 12/31/23 12/21/24 History %) nasal spray omeprazole 20 mg capsule,delayed 20 mg PO DAILY 12/31/23 12/22/24 History release polyethylene glycol 3350 17 17 g PO MOTUWETHFR 12/31/23 12/21/24 History gram/dose oral powder (ClearLax) sennosides 8.6 mg-docusate sodium 2 tab-cap PO DAILY 12/31/23 12/21/24 History 50 mg tablet (2-in-1 Laxative) sertraline 20 mg/mL oral 100 mg PO QHS 12/31/23 12/21/24 History concentrate sulfamethoxazole 200 10 ml PO MOWEFR 12/31/23 12/21/24 History mg-trimethoprim 40 mg/5 mL oral suspension tramadol 50 mg tablet 25 mg PO BID 12/31/23 12/21/24 History ondansetron HCl 4 mg tablet 4 mg PO Q8H PRN nausea and vomiting 01/26/24 Unknown History acetaminophen 325 mg capsule 650 mg PO Q4H PRN fever 12/22/24 Unknown History acetaminophen 500 mg capsule 500 mg PO Q6H PRN fever or pain 12/22/24 12/21/24 History calcium 500 mg (as 1 tab PO BID 12/22/24 12/21/24 History carbonate)-vitamin D3 10 mcg (400 unit) tablet (Oyster Shell Calcium-Vitamin D3) ipratropium 0.5 mg-albuterol 3 mg 3 ml inhalation Q4H PRN shortness 12/22/24 Unknown History (2.5 mg base)/3 mL nebulization of breath soln loperamide 2 mg tablet (Diamode) 2 mg PO Q8H PRN loose stool 12/22/24 Unknown History magnesium hydroxide 400 mg/5 mL 30 ml PO DAILY PRN constipation 12/22/24 Unknown History oral suspension (Milk of Magnesia) menthol 5 % topical gel (Biofreeze 1 ea topical BID PRN pain 12/22/24 Unknown History (menthol)) sennosides 8.6 mg-docusate sodium 1 tab-cap PO DAILY PRN constipation 12/22/24 12/22/24 History 50 mg tablet (2-in-1 Laxative) Allergy/AdvReac Type Severity Reaction Status Date / Time No Known Allergies Allergy Verified 01/26/24 15:21 Social History household members: other details: [facility] Smoking Status: Former smoker ROS ROS ED Constitutional Constitutional ED: Denies chills or fever(s) Eyes Eyes: Denies change in vision or diplopia ENT ENT ED: Denies rhinorrhea or sore throat Cardiovascular Cardiovascular: Denies chest pain or palpitations Respiratory/Chest Respiratory/Chest: Denies cough or dyspnea Gastrointestinal Gastrointestinal: Denies abdominal pain, diarrhea, nausea or vomiting Musculoskeletal Musculoskeletal: Reports extremity pain; Denies neck pain Integumentary Denies Abrasions, rash or wounds Neurologic Neurologic: Reports weakness; Denies headache(s) or paresthesias Psychiatric Psychiatric: Denies anxiety or suicidal thoughts EXAM Physical Exam Const Vital Signs: 12/22/24 08:19 Temperature 98.7 F Temperature Source Oral Pulse Rate 89 Respiratory Rate 16 Blood Pressure 173/90 H Blood Pressure Mean 117 Pulse Ox 95 Oxygen Delivery Method Room Air Positive well nourished and well developed General Appearance ED: well developed and NAD HEENT Reports moist mucous membranes normocephalic and atraumatic Eyes PERRL and EOMs intact bilaterally Neck full ROM and supple Resp normal respiratory effort and clear to auscultation bilaterally Cardio regular rate, regular rhythm and no murmurs GI non-tender and non-distended Auscultation: normoactive bowel sounds Palpation: soft Extremity normal to inspection Extremity Narrative: There is no ecchymosis or purpura in the right lower extremity, she had some mild tenderness around the joint line of the right knee subjectively, both medially and laterally. There is no swelling. There is no deformity. With logrolling the right lower extremity she has no pain and the hip is nontender. With flexing the knee she does complain of pain but she is able to tolerate passively flexing without wincing or discomfort. Passive range of motion of the right ankle yields no discomfort. All compartments of the thigh and the lower leg are soft and nondistended. There is no effusion detected. She does not have patellar tenderness. I cannot have her prove extensor mechanism is intact, she exerts no effort when asked to try to move her leg. With regards to the left lower extremity in both of her arms, she does have limited range of motion due to contractures but there is no pain or tenderness. General Extremety ED: Negative for edema or pulses abnormal General Extremity: Negative for edema or pulses abnormal Neuro oriented x3 Neuro Narrative: Bilateral upper extremity contractures with limited range of motion. Lower extremities symmetrically weak. Sensorium / Orientation: alert Psych mental status grossly normal and thought process normal Skin no wounds Rashes: no rashes MDM MDM MDM Narrative Medical decision making narrative: 4 view x-ray series of the right knee were obtained, and on my interpretation I see no obvious fractures or effusion. Radiology read it and they are in agreement. I discussed this with the patient, she confirms that she is not having pain or tenderness elsewhere in the right lower extremity, or the other extremities for that matter. Therefore I do not think we need to do any other x-rays, I was not able to recreate any pain with logrolling, making a midshaft fracture of femur, fibula, tibia much less likely, and similarly less likely to have a fracture of the hip as I was not able to recreate any pain in those areas. As I discussed with the patient, I am not able to rule out a minor little chip somewhere in the area that was x-rayed, however I do not think we need to CT or MRI her to discover that right now since she is nonambulatory and nonweightbearing 100% of the time. Therefore I think an [place] wrap right now will suffice, without the need for knee immobilizer, the joint is stable. She was concerned about her activities such as therapy and moving to a chair, I told her that she could do what ever she usually does as long she can tolerate it and I will write a note for them to watch her knee with regards to pain. Patient stated that would be fine and was appreciative and fine going back. Radiography Diagnostic Testing: Clinical Impression(s) from Imaging Studies Knee X-Ray 12/22/24 08:30 IMPRESSION: Degenerative changes as above. Reading Location: [facility] Discharge Plan Triage Chief Complaint: Lower Extremity Injury ED Provider: Sabas Parada Dx/Rx/DC Orders Clinical Impression: Acute pain of right knee Prescriptions: No Action ondansetron HCl 4 mg tablet 4 mg PO Q8H PRN (Reason: nausea and vomiting) acetaminophen 500 mg tablet 1,000 mg PO BID aspirin 81 mg tablet,chewable 1 tab PO DAILY fluorometholone 0.1 % drops,suspension 1 drp ophthalmic (eye) DAILY alendronate 70 mg tablet 70 mg PO QWEEK polyethylene glycol 3350 [ClearLax] 17 gram/dose powder 17 g PO MOTUWETHFR ipratropium bromide 42 mcg (0.06 %) spray,non-aerosol 1 spray INTRANASAL BID omeprazole 20 mg capsule,delayed release(DR/EC) 20 mg PO DAILY carboxymethylcellulose sodium [Lubricant Eye Drops] 0.5 % drops 2 drp EACH EYE BID sennosides-docusate sodium [2-in-1 Laxative] 8.6-50 mg tablet 2 tab-cap PO DAILY sertraline 20 mg/mL concentrate 100 mg PO QHS sulfamethoxazole-trimethoprim 200-40 mg/5 mL suspension 10 ml PO MOWEFR tramadol 50 mg tablet 25 mg PO BID UTI-Stat 3,875 mg/30 mL liquid 30 ml PO DAILY ergocalciferol (vitamin D2) [Vitamin D2] 1,250 mcg (50,000 unit) capsule 50,000 unit PO Q45D cetirizine 10 mg tablet 5 mg PO DAILY calcium carbonate-vitamin D3 [Oyster Shell Calcium-Vit D3] 500 mg-10 mcg (400 unit) tablet 1 tab PO BID acetaminophen 500 mg capsule 500 mg PO Q6H PRN (Reason: fever or pain) acetaminophen 325 mg capsule 650 mg PO Q4H PRN (Reason: fever) Biofreeze (menthol) 5 % gel 1 ea topical BID PRN (Reason: pain) loperamide [Diamode] 2 mg tablet 2 mg PO Q8H PRN (Reason: loose stool) ipratropium-albuterol 0.5 mg-3 mg(2.5 mg base)/3 mL solution for nebulization 3 ml inhalation Q4H PRN (Reason: shortness of breath) magnesium hydroxide [Milk of Magnesia] 400 mg/5 mL suspension 30 ml PO DAILY PRN (Reason: constipation) sennosides-docusate sodium [2-in-1 Laxative] 8.6-50 mg tablet 1 tab-cap PO DAILY PRN (Reason: constipation) Primary Care Provider: Sascha Michele Referrals: Donis Estes MD [Med Staff - Active Staff] - 1 Week if not improving Sascha Michele [[facility]] - Activity Restrictions/Additional Instructions: No fracture seen. CT not necessary to look for minor chips right now since she is nonweightbearing at baseline, if she had a minor chip fracture that was not seen on x-ray we would be treating it appropriately with [place] wrap and limited range of motion. She can do therapy and activities as tolerated, taking care with regards to the right knee. Print Language: Indonesian Disposition Disposition: Home, Self Care
[2024-12-22 08:19] VITALS: BP 173/90; PULSE 89; RESP 16; TEMP 37.1; O2SAT 95; BMI 23.9
--- NOTE | 2024-12-22 08:30 | RAD_ITS ---
EXAM: XR Right Knee Complete, 4 or More Views CLINICAL INDICATION: PAIN TECHNIQUE: Four or more views of the right knee. COMPARISON: No relevant prior studies available. FINDINGS: BONES/JOINTS: Mild tricompartmental degenerative change of the knee joint. Cortical irregularity of the superior aspect of the patella with sclerotic margin, likely sequela of prior injury. No acute fracture. No dislocation. SOFT TISSUES: Soft tissue swelling. RAD/Knee 4 or More Views IMPRESSION: Degenerative changes as above. Reading Location: [id number]
[2024-12-22] MEDS: Acetaminophen 500 MG Tablet 1000 MG PO (09:29)
[2024-12-22 10:09] VITALS: BP 147/64
[2024-12-22 12:00] VITALS: BP 147/64; PULSE 89; RESP 16; TEMP 37.1; O2SAT 95
== END 2024-12-22 12:00 | disposition home or self-care (01) ==
PROVIDERS: Emergency Provider Emergency Medicine; PCP Family Medicine; Visit Provider Emergency Medicine
DX: M25.561 Pain in right knee (principal); Z87.891 Personal history of nicotine dependence; M81.0 Age-related osteoporosis without current pathological fracture; Z99.3 Dependence on wheelchair; I25.10 Atherosclerotic heart disease of native coronary artery without angina pectoris; X58.XXXA Exposure to other specified factors, initial encounter; Y92.129 Unspecified place in nursing home as the place of occurrence of the external cause; Z79.899 Other long term (current) drug therapy; K21.9 Gastro-esophageal reflux disease without esophagitis
CPT/HCPCS: 73564; 99284

== ENCOUNTER → 2025-05-20 05:00 | Outpatient (REF) | payer MEDICARE, OTHER, SELFPAY ==
[2025-05-20 08:16] LABS: Hematocrit 38.5 % (37-47); Hemoglobin 12.1 g/dL (12.0-15.0); Mean Corp Hgb Conc 31.4 g/dL (32-36); Mean Corpuscular Volume 93.4 fL (81-99); Mean Platelet Vol. 10.1 fl (6.2-12.0); Platelet Count 353 K/mm3 (150-450); RBC Distribution Width CV 14.1 % (11.6-14.6); RBC Distribution Width SD 48.2 fl (35.1-43.9); Red Blood Count 4.12 M/mm3 (4.2-5.4); White Blood Count 6.7 K/mm3 (4.4-11.0)
[2025-05-20 08:28] LABS: Anion Gap 11 (5-15); BUN 23 mg/dL (4-19); BUN/Creat Ratio 85.8 RATIO (10-20); Calcium,Total 9.4 mg/dL (7.6-11.0); Carbon Dioxide 25.1 mmol/L (21.0-32.0); Chloride 107 mmol/L (98-108); Glucose 86 mg/dL (70-99); Potassium 4.0 mmol/L (3.3-5.1)
== END ==
LOC: OLS.ACH 05:00
PROVIDERS: PCP Family Medicine; Visit Provider Internal Medicine
DX: G35.D Multiple sclerosis, unspecified (principal)
CPT/HCPCS: 36415; 80048; 85027